=== PATIENT | male | born 1935 | race Caucasian/White ===

== ENCOUNTER 2019-05-17 01:26 | Day surgery (SDC) | payer MEDICARE, SELFPAY ==
[2019-05-04 10:57] VITALS: BMI 28.1
[2019-05-17] VITALS (9 sets, daily range): BP systolic 137–174; BP diastolic 63–78; PULSE 70–76; RESP 12–16; TEMP 36.3–36.9; O2SAT 98–100
[2019-05-17] MEDS: LACTATED RINGERS 1,000 ML 30 ML IV CONT (10:55)
--- NOTE | 2019-05-17 11:03 | WPDANESEPPF ---
Anes - Initial Pre Proc Eval Procedure: Operation Date: 05/17/19 12:30 Proposed Procedures p Trans Urethral Resection Bladder Tumor - Howard Jauregui MD Date/Time: 05/17/19 11:03 Surgeon: Howard Jauregui MD Pre Op Diagnosis: Bladder Ca Patient Data Age: 83 Gender: M Height: 5 ft 7 in Weight: 81.65 kg Allergies Allergy/AdvReac Type Severity Reaction Status Date / Time shellfish derived Allergy Severe Hives Verified 05/17/19 10:38 cephalexin Allergy Unknown Hives Verified 05/17/19 10:38 erythromycin base Allergy Unknown hives Verified 05/17/19 10:38 Sulfa (Sulfonamide Allergy Unknown Hives Verified 05/17/19 10:38 Antibiotics) tetracycline Allergy Unknown Hives Verified 05/17/19 10:38 CEPHALEXIN MONOHYDRATE Allergy Severe HIVES Uncoded 05/17/19 10:38 Crab Allergy Severe HIVES Uncoded 05/17/19 10:38 Home Medications Medication Instructions Recorded Confirmed Type albuterol sulfate [ProAir HFA] 2 puff INHALATION PRN PRN 05/04/19 05/04/19 History amlodipine 10 mg PO DAILY 05/04/19 05/04/19 History aspirin [Adult Low Dose Aspirin] 81 mg PO DAILY 05/04/19 05/04/19 History calcium carbonate-vitamin D3 1 cap PO BID 05/04/19 05/04/19 History [Calcium 600 + D(3)] docusate sodium [Stool Softener] 50 mg PO HS 05/04/19 05/04/19 History escitalopram oxalate 20 mg PO HS 05/04/19 05/04/19 History famotidine [Pepcid] 20 mg PO BID 05/04/19 05/04/19 History fexofenadine 60 mg PO DAILY 05/04/19 05/04/19 History finasteride 10 mg PO DAILY 05/04/19 05/04/19 History furosemide 20 mg PO DAILY 05/04/19 05/04/19 History glucosamine-chondroitin [Osteo 1 tablet PO BID 05/04/19 05/04/19 History Bi-Flex] metoprolol tartrate 12.5 mg PO BID 05/04/19 05/04/19 History wksympprwnab-gah-hsvl-FA-vit K 1 tablet PO DAILY 05/04/19 05/04/19 History [Adults Multivitamin] polysaccharide iron complex 150 mg PO QMWF 05/04/19 05/04/19 History simvastatin 20 mg PO HS 05/04/19 05/04/19 History tiotropium bromide [Spiriva with 1 cap INHALATION DAILY 05/04/19 05/04/19 History HandiHaler] tramadol 50 mg PO PRN PRN 05/04/19 05/04/19 History swuO-E-pb-endoscopic technician HKD-hkmi-dlvzzj 2 cap PO BID 05/04/19 05/04/19 History [ICaps AREDS2] vitamin B complex 1 cap PO DAILY 05/04/19 05/04/19 History Patient hx anesthesia problems: none Family hx anesthesia problems: none PMFSH Past Medical History Medical History Afib CAD (coronary artery disease) CHF (congestive heart failure) COPD (chronic obstructive pulmonary disease) Dementia Hyperlipidemia Hypertension Pacemaker Peripheral vascular disease Surgical History Surgical History Hx of CABG Family History Family History Sibling Family history of cardiovascular disease, Onset Age: 74 Mother Acute myocardial infarction, Onset Age: 76 Father Malignant neoplasm of prostate, Onset Age: 71 Other Diabetes mellitus Family history of lupus erythematosus Family history of renal failure Social History Social History Smoking status: Former smoker Smoking end date: 04/18/95 Alcohol intake: never Anes - Eval Final PreProcedure Day of Procedure 05/17/19 11:03 Patient weight: overweight Heart: regular rate and rhythm Lungs: clear to auscultation Airway: Mallampati scale class II Neurological: other (alert) Last oral intake: >/= 8 hours ASA classification: IV Emergent: no Anesthetic plan: proceed Anesthesia type and monitoring: general LMA and standard monitoring Informed Consent: The patient's anesthetic plan and its attendant risks and benefits were discussed with the patient/family/POA. Questions were solicited and answers provided to the satisfaction of the patient/family/POA.
[2019-05-17 11:16] LABS: Glucose Point of Care 185 (65-105)
--- NOTE | 2019-05-17 11:37 | WPDHPUPDATE1 ---
History and Physical Update Update Date/Time: 05/17/19 11:37 History and Physical has been reviewed, including an updated exam of the patient. There are NO changes in the patient's condition. Risks, benefits, and alternatives have been discussed and questions answered. Patient agrees to proceed with procedure.
--- NOTE | 2019-05-17 11:50 | PM.HPGS ---
History of Present Illness History of Present Illness Consent: Risks, benefits, and alternatives have been discussed and questions answered. Patient agrees to proceed with procedure. Chief complaint: Bladder Ca Narrative: Nnamdi Montenegro is a 83 year old male with a recurrent bladder tumor found on surveillance cystoscopy. He has multiple recurrences in the past. Review of Systems Cardiovascular: Cardiovascular: Denies chest pain, Denies lightheadedness, Denies palpitations and Denies dyspnea Respiratory: Respiratory: Denies dyspnea Gastrointestinal: Gastrointestinal: Denies diarrhea, Denies nausea and Denies vomiting Genitourinary: Genitourinary: Denies hematuria and Denies dysuria Endocrine: Endocrine: Denies palpitations PMFSH Past Medical History Medical History Afib CAD (coronary artery disease) CHF (congestive heart failure) COPD (chronic obstructive pulmonary disease) Dementia Hyperlipidemia Hypertension Pacemaker Peripheral vascular disease Surgical History Surgical History Hx of CABG Family History Family History Sibling Family history of cardiovascular disease, Onset Age: 74 Mother Acute myocardial infarction, Onset Age: 76 Father Malignant neoplasm of prostate, Onset Age: 71 Other Diabetes mellitus Family history of lupus erythematosus Family history of renal failure Social History Social History Smoking status: Former smoker Smoking end date: 04/18/95 Alcohol intake: never Meds Home Medications and Allergies Home Medications Medication Instructions Recorded Confirmed Type albuterol sulfate [ProAir HFA] 2 puff INHALATION PRN PRN 05/04/19 05/04/19 History amlodipine 10 mg PO DAILY 05/04/19 05/17/19 History aspirin [Adult Low Dose Aspirin] 81 mg PO DAILY 05/04/19 05/17/19 History calcium carbonate-vitamin D3 1 cap PO BID 05/04/19 05/17/19 History [Calcium 600 + D(3)] docusate sodium [Stool Softener] 50 mg PO HS 05/04/19 05/17/19 History escitalopram oxalate 20 mg PO HS 05/04/19 05/17/19 History famotidine [Pepcid] 20 mg PO BID 05/04/19 05/17/19 History fexofenadine 60 mg PO DAILY 05/04/19 05/17/19 History finasteride 10 mg PO DAILY 05/04/19 05/17/19 History furosemide 20 mg PO DAILY 05/04/19 05/17/19 History glucosamine-chondroitin [Osteo 1 tablet PO BID 05/04/19 05/17/19 History Bi-Flex] metoprolol tartrate 12.5 mg PO BID 05/04/19 05/04/19 History zocspjomqhgs-pdm-vzzd-FA-vit K 1 tablet PO DAILY 05/04/19 05/17/19 History [Adults Multivitamin] polysaccharide iron complex 150 mg PO QMWF 05/04/19 05/17/19 History simvastatin 20 mg PO HS 05/04/19 05/04/19 History tiotropium bromide [Spiriva with 1 cap INHALATION DAILY 05/04/19 05/17/19 History HandiHaler] tramadol 50 mg PO PRN PRN 05/04/19 05/17/19 History pyrR-A-gb-copper etcher CRA-psim-gvwdop 2 cap PO BID 05/04/19 05/17/19 History [ICaps AREDS2] vitamin B complex 1 cap PO DAILY 05/04/19 05/17/19 History Allergies Allergy/AdvReac Type Severity Reaction Status Date / Time shellfish derived Allergy Severe Hives Verified 05/17/19 11:07 cephalexin Allergy Unknown Hives Verified 05/17/19 10:38 erythromycin base Allergy Unknown hives Verified 05/17/19 10:38 Sulfa (Sulfonamide Allergy Unknown Hives Verified 05/17/19 10:38 Antibiotics) tetracycline Allergy Unknown Hives Verified 05/17/19 10:38 Vital Signs Vital Signs - 24 hr 05/17/19 11:05 Temperature 36.9 C Pulse Rate 70 Respiratory Rate 16 Blood Pressure 146/72 H Pulse Oximetry 98 Assessment and Plan Assessment and plan (1) 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
[2019-05-17] MEDS: levoFLOXacin 500 MG/D5W 100 ML 500 MG/100 ML BAG 100 MG IVPB (11:59)
[2019-05-17] MEDS: LIDOCAINE HCL 2% GEL UROJET 10 ML PKG MUCOUS MEM (12:24)
--- NOTE | 2019-05-17 12:30 | PM.PROC ---
Procedure Note - Detailed Date of procedure: 05/17/19 Pre-op diagnosis: Bladder Ca Post-op diagnosis: same Procedure performed: TURBT (medium, 4cm) Description of procedure: The patient was brought to the operative suite where he is prepped and draped in a routine sterile fashion while in the dorsal lithotomy position. This is done after the uneventful administration of systemic sedation. 2% Xylocaine jelly is introduced intraurethrally and allowed to stand for an appropriate period of time. A 24F resectoscope sheath was placed in the bladder and the bladder is circumferentially inspected carefully. He has several contiguous bladder tumors in the posterior bladder wall measuring ~4cm in diameter. This area is resected in its entirety with an attempt made to include detrusor muscle for pathological evaluation of invasion. The base and periphery of this resected side is cauterized with a loop electrode. The bladder is emptied and the resectoscope was removed. The patient is taken to the recovery room having tolerated this procedure well. Anesthesia: MAC Surgeon: Howard Jauregui MD Estimated blood loss (mL): 0 Drains: No Packing: No Pathology: yes Complications: No immediate complications Condition: stable Disposition: same day
--- NOTE | 2019-05-17 13:00 | SUR.PHASEI ---
REPORT GIVEN TO TYRONE AUSTIN.
[2019-05-17 13:16] LABS: Glucose Point of Care 148 (65-105)
== END 2019-05-17 14:44 | disposition home or self-care (01) ==
PROVIDERS: PCP Family Medicine; Visit Provider Urology
PROC: 0TBB8ZZ Excision of Bladder, Via Natural or Artificial Opening Endoscopic (ICD-10-PCS; CPT 52235; principal; 2019-05-17 12:30)
DX: C67.4 Malignant neoplasm of posterior wall of bladder (principal); I48.91 Unspecified atrial fibrillation; I11.0 Hypertensive heart disease with heart failure; I50.9 Heart failure, unspecified; J44.9 Chronic obstructive pulmonary disease, unspecified; E78.5 Hyperlipidemia, unspecified; I73.9 Peripheral vascular disease, unspecified; Z95.0 Presence of cardiac pacemaker; Z79.82 Long term (current) use of aspirin; Z95.1 Presence of aortocoronary bypass graft; Z87.891 Personal history of nicotine dependence
CPT/HCPCS: 52235; 88305; A9270; J1956; J2704; J7120

== ENCOUNTER 2019-10-09 13:01 | Outpatient (CLI) | payer MEDICARE, SELFPAY ==
--- NOTE | ~2019-10-09 | CT_ITS ---
EXAMINATION: CT abdomen pelvis wo/w con DATE: 10/09/2019 14:34 INDICATION: Gross hematuria TECHNIQUE: Computed tomography (CT) of the abdomen and pelvis was performed without intravenous contr ast. CT of the abdomen and pelvis was then performed with a total of 130 mL Omnipaque 350 intravenous contrast using a double-bolus technique for simultaneous opacification of the renal parenchyma and r enal collecting system. The dose-length product (DLP) was 1465.25 mGy-cm. Automated exposure control and iterative reconstruction technique were employed. COMPARISON: None FINDINGS: There are subpleural reticular opacities of the visualized lung bases with suspected early honeycombing. Cardiomegaly is noted. There is focal fatty infiltration of liver near the gallbladder fossa. The spleen, pancreas,, and adrenal glands are normal. Stones are present in the nondistended g allbladder. Cysts of the kidneys measure up to 1.4 cm on the right. No stones are present in the kidn eys, ureters, or bladder. There is mild left hydroureter continuing to the level of the distal ureter . There are interrupted areas of mild bladder wall thickening. There is calcified atherosclerosis of the aorta and many of the other arteries. No pathologically enlarged abdominal or pelvic lymph nodes are identified. A moderate volume of colonic stool is present. There is no free intraperitoneal gas o r evidence of bowel obstruction. There is severe lumbar spondylosis. Grade 1 anterolisthesis of L5 on S1 is noted with bilateral L5 pars defects. Endovascular stents are noted in the common iliac arteri es. IMPRESSION: 1. Mild left hydroureter continuing to the level of the distal ureter without definite urothelial les ion identified. 2. Interrupted areas of bladder wall thickening. Findings could reflect inflammation however direct v isualization is recommended to evaluate for urothelial lesion. 3. Cholelithiasis without evidence of cholecystitis. 4. Chronic interstitial lung disease of the visualized lung bases. Reviewed, dictated and finalized at location A. IMPRESSION: 1. Mild left hydroureter continuing to the level of the distal ureter without d efinite urothelial lesion identified. 2. Interrupted areas of bladder wall thickening. Findings could reflect inflamm ation however direct visualization is recommended to evaluate for urothelial le holger. 3. Cholelithiasis without evidence of cholecystitis. 4. Chronic interstitial lung disease of the visualized lung bases.
[2019-10-09 14:14] LABS: Estimated Glomerular Filt Rate > 60
== END 2019-10-09 13:02 | disposition home or self-care (01) ==
PROVIDERS: PCP Family Medicine; Visit Provider Urology
DX: R31.0 Gross hematuria (principal); N13.4 Hydroureter; K80.20 Calculus of gallbladder without cholecystitis without obstruction; J84.9 Interstitial pulmonary disease, unspecified
CPT/HCPCS: 36415; 74178; Q9967